=== PATIENT | female | born 2000 | race African-American/Black ===

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

== ENCOUNTER 2020-10-15 10:00 | Emergency (ER) | payer OTHER, SELFPAY ==
[2020-10-15] MEDS ORDERED: Prochlorperazine 10 MG/2 ML VIAL ONE (10:22)
[2020-10-15 10:41] LABS: Pregnancy Test - Urine (BHCG) Negative (Negative); Pregu Control Bar Appear? YES (CONTROL BAR); Specific Gravity 1.035 (1.002-1.036)
[2020-10-15 10:42] LABS: Bilirubin Small (Negative); Blood, Urine Negative (Negative); Clarity Clear (Clear); Glucose, Urine (Dipstick) Negative (Negative); Ketone, Urine Trace mg/dL (Negative); Leukocyte Negative (Negative); Nitrite Negative (Negative); Pregu Control Background? CLEAR/WHITE (CLR/WHITE); Protein, Urine (Dipstick) 30 mg/dL (Neg-Trace)
[2020-10-15 10:43] LABS: Specific Gravity, Urine 1.035 (1.002-1.036)
[2020-10-15 10:46] LABS: Bacteria/HPF Rare-Few HPF (None Seen); RBC/HPF 0-3 HPF (0-3); WBC/HPF 0-3 HPF (0-3)
[2020-10-15] MEDS ORDERED: Ondansetron PF 4 MG/2 ML Vial ONE (10:58)
[2020-10-15] MEDS ORDERED: Sodium Chloride 0.9% 1,000 ML ONE (10:58)
[2020-10-15 11:32] LABS: #Basophils 0.1 thou/uL (0.0-0.2); #Lymphocytes 1.8 thou/uL (1.20-3.40); #Monocytes 0.9 thou/uL (0.11-0.59); %Basophils 1.3 % (0.0-1.0); %Eosinophils 0.5 % (0.0-10.0); %Lymphocytes 25.9 % (28.0-48.0); %Monocytes 12.8 % (0.0-4.0); %Neutrophils 59.4 % (31.0-61.0); Hypochromia SLIGHT = 6-15 cells (100X) (0-5/hpf); MDiff Complete? YES; Mean Corpuscular HGB CONC 29.3 g/dL (32.0-36.0); Mean Corpuscular Volume 78.4 fL (78.0-98.0); Mean Platelet Volume 11.1 fL (7.4-10.4); Platelet Count 253 thou/uL (130-400); Platelet Morphology Comment Appears Adequate; RBC Distribution Width 13.4 % (11.5-14.5); Red Blood Cell (RBC) Count 5.68 mill/uL (4.00-5.20); White Blood Cell (WBC) Count 6.7 thou/uL (4.8-10.8)
[2020-10-15 11:38] LABS: ALT (SGPT) 33 U/L (8-55); AST (SGOT) 40 U/L (5-30); Albumin 4.5 g/dL (3.5-5.0); Alkaline Phosphatase 59 U/L (40-100); Anion Gap 17 mmol/L (10-20); BUN (Urea Nitrogen) 14 mg/dL (8.4-21.0); Calc. Creatinine Clearance 0 mL/min (70-130); Calcium 9.3 mg/dL (7.8-10.44); Carbon Dioxide 23 mmol/L (22-29); Chloride 102 mmol/L (98-107); Globulin 3.4 g/dL (2.4-3.5); Glucose 105 mg/dL (70-105); Lipase 20 U/L (8-78); Potassium 3.2 mmol/L (3.5-5.1); Protein, Total 7.9 g/dL (6.0-8.3); Sodium 139 mmol/L (136-145)
== END 2020-10-15 12:30 | disposition home or self-care (01) ==
LOC: MADERS 10:00
DX: R11.2 Nausea with vomiting, unspecified (principal)
CPT/HCPCS: 80053; 81003; 81015; 81025; 83690; 85025; 96372; 96374; J0780; J2405; J7050

== ENCOUNTER 2020-10-20 02:44 | Emergency (ER) | payer SELFPAY ==
[2020-10-20] MEDS ORDERED: Ondansetron PF 4 MG/2 ML Vial ONE (03:18)
[2020-10-20] MEDS ORDERED: Sodium Chloride 0.9% 1,000 ML ONE (03:18)
[2020-10-20 03:24] LABS: Bilirubin Small (Negative); Blood, Urine Negative (Negative); Clarity Clear (Clear); Glucose, Urine (Dipstick) Negative (Negative); Ketone, Urine 40 mg/dL (Negative); Leukocyte Negative (Negative); Nitrite Negative (Negative); Protein, Urine (Dipstick) Negative (Neg-Trace); Specific Gravity, Urine 1.025 (1.005-1.030); Urobilinogen > or = 8.0 mg/dL (Less than 2)
[2020-10-20 03:35] LABS: Amphetamine Not Detected (NotDetected); Barbiturates Screen Not Detected (NotDetected); Benzodiazepine Screen Not Detected (NotDetected); Cocaine Metabolite Screen Not Detected (NotDetected); Medtox Control Line Valid? VALID (VALID); Methadone Not Detected (NotDetected); Methamphetamine Not Detected (NotDetected); Opiate Screen Not Detected (NotDetected); Oxycodone Screen Not Detected (NotDetected); Phencyclidine (PCP) Not Detected (NotDetected); THC/Cannabinoid Screen Detected (NotDetected); Tricyclic Screen Not Detected (NotDetected)
[2020-10-20 03:46] LABS: #Basophils 0.1 thou/uL (0.0-0.2); #Eosinphils 0.1 thou/uL (0.0-0.7); #Lymphocytes 1.5 thou/uL (1.20-3.40); #Monocytes 0.4 thou/uL (0.11-0.59); #Neutrophils 3.9 thou/uL (1.40-6.50); %Basophils 2.2 % (0.0-1.0); %Lymphocytes 24.1 % (28.0-48.0); %Monocytes 7.2 % (0.0-4.0); %Neutrophils 65.5 % (31.0-61.0); Hemoglobin 11.3 g/dL (12.0-16.0); Large Platelets SLIGHT; MDiff Complete? YES; Mean Corpuscular HGB CONC 29.2 g/dL (32.0-36.0); Mean Corpuscular Hemoglobin 23.1 pg (25.0-35.0); Mean Corpuscular Volume 79.2 fL (78.0-98.0); Mean Platelet Volume 10.9 fL (7.4-10.4); Platelet Count 220 thou/uL (130-400); Platelet Morphology Comment Appears Adequate; RBC Distribution Width 14.1 % (11.5-14.5); RBC Morphology Normal
[2020-10-20 03:53] LABS: ALT (SGPT) 16 U/L (8-55); AST (SGOT) 10 U/L (5-30); Albumin 4.1 g/dL (3.5-5.0); Alkaline Phosphatase 49 U/L (40-100); Anion Gap 15 mmol/L (10-20); BHCG - Serum Negative (NEGATIVE); BUN (Urea Nitrogen) 7 mg/dL (8.4-21.0); Bilirubin, Total 0.5 mg/dL (0.2-1.2); CK (CPK) 72 U/L (29-168); Calc. Creatinine Clearance 0 mL/min (70-130); Calcium 8.9 mg/dL (7.8-10.44); Carbon Dioxide 21 mmol/L (22-29); Chloride 107 mmol/L (98-107); Globulin 2.9 g/dL (2.4-3.5); Glucose 106 mg/dL (70-105); Lipase 20 U/L (8-78); Potassium 4.1 mmol/L (3.5-5.1); Pregs Control Background? CLEAR/WHITE (CLR/WHITE); Pregs Control Bar Appear? YES (CONTROL BAR); Sodium 139 mmol/L (136-145)
[2020-10-20] MEDS ORDERED: Pantoprazole 40 MG VIAL ONE (04:18)
[2020-10-20] MEDS ORDERED: Metoclopramide HCl 10 MG/2 ML VIAL ONE (04:18)
== END 2020-10-20 05:18 | disposition home or self-care (01) ==
LOC: MADERS 02:44
DX: R11.2 Nausea with vomiting, unspecified (principal); F12.10 Cannabis abuse, uncomplicated; R00.0 Tachycardia, unspecified; R63.0 Anorexia; R53.1 Weakness
CPT/HCPCS: 80053; 80306; 81003; 82150; 82550; 83690; 84703; 85025; 96374; 96375; C9113; J2405; J2765; J7050

== ENCOUNTER 2021-04-26 18:30 | Emergency (ER) | payer MEDICAID, SELFPAY ==
[2021-04-26] MEDS ORDERED: Ondansetron ODT 4 MG TAB ONE ×2 (19:15→21:13)
[2021-04-26 19:25] LABS: Bilirubin Negative (Negative); Blood, Urine Negative (Negative); Glucose, Urine (Dipstick) Negative (Negative); Ketone, Urine 15 mg/dL (Negative); Leukocyte Negative (Negative); Nitrite Negative (Negative); Protein, Urine (Dipstick) 30 mg/dL (Neg-Trace)
[2021-04-26 19:26] LABS: Pregnancy Test - Urine (BHCG) Negative (Negative); Pregu Control Background? CLEAR/WHITE (CLR/WHITE); Pregu Control Bar Appear? YES (CONTROL BAR); Specific Gravity 1.025 (1.002-1.036)
[2021-04-26 19:33] LABS: Clarity Hazy (Clear); Specific Gravity, Urine 1.025 (1.002-1.036)
[2021-04-26 19:34] LABS: Bacteria/HPF 2+ HPF (None Seen); RBC/HPF 0-3 HPF (0-3)
== END 2021-04-26 21:45 | disposition home or self-care (01) ==
LOC: MADERS 18:30
DX: A08.4 Viral intestinal infection, unspecified (principal)
CPT/HCPCS: 81003; 81015; 81025; 99284; Q0162

== ENCOUNTER 2021-04-27 04:12 | Emergency (ER) | payer MEDICAID ==
[2021-04-27] MEDS ORDERED: Sodium Chloride 0.9% 1,000 ML ONE (04:52)
[2021-04-27] MEDS ORDERED: Promethazine HCl 25 MG/ML VIAL ONE (04:52)
[2021-04-27 05:05] LABS: Band 1 % (5-11); Hypochromia SLIGHT = 6-15 cells (100X) (0-5/hpf); Lymphocytes 13 % (28-48); MDiff Complete? YES; Mean Corpuscular HGB CONC 30.4 g/dL (32.0-36.0); Mean Corpuscular Volume 75.7 fL (78.0-98.0); Mean Platelet Volume 9.7 fL (7.4-10.4); Microcytosis SLIGHT = 6-15 cells (100X) (0-5/hpf); Monocytes 3 % (0-4); Neutrophil 82 % (31-61); Platelet Count 276 thou/uL (130-400); RBC Distribution Width 12.7 % (11.5-14.5); Reactive Lymphocytes 1 % (0-10); Red Blood Cell (RBC) Count 5.64 mill/uL (4.00-5.20); White Blood Cell (WBC) Count 5.9 thou/uL (4.8-10.8)
[2021-04-27 05:07] LABS: BHCG - Serum Negative (NEGATIVE); Pregs Control Background? CLEAR/WHITE (CLR/WHITE); Pregs Control Bar Appear? YES (CONTROL BAR)
[2021-04-27 05:09] LABS: ALT (SGPT) 11 U/L (8-55); AST (SGOT) 15 U/L (5-34); Albumin 4.8 g/dL (3.5-5.0); Alkaline Phosphatase 63 U/L (40-100); Anion Gap 17 mmol/L (10-20); BUN (Urea Nitrogen) 11 mg/dL (7.0-18.7); Bilirubin, Total 0.6 mg/dL (0.2-1.2); Calc. Creatinine Clearance 0 mL/min (70-130); Calcium 10.7 mg/dL (7.8-10.44); Carbon Dioxide 22 mmol/L (22-29); Chloride 105 mmol/L (98-107); Globulin 4.2 g/dL (2.4-3.5); Glucose 120 mg/dL (70-105); Lipase 21 U/L (8-78); Magnesium 1.8 mg/dL (1.7-2.2); Potassium 3.7 mmol/L (3.5-5.1); Sodium 140 mmol/L (136-145)
[2021-04-27] MEDS ORDERED: Pantoprazole 40 MG VIAL ONE (06:17)
== END 2021-04-27 06:30 | disposition home or self-care (01) ==
LOC: MADERS 04:12
DX: F12.188 Cannabis abuse with other cannabis-induced disorder (principal); R11.2 Nausea with vomiting, unspecified; Z79.899 Other long term (current) drug therapy
CPT/HCPCS: 80053; 83690; 83735; 84703; 85025; 93005; 96365; 96375; C9113; J2550; J7050

== ENCOUNTER 2021-04-28 16:44 | Emergency (ER) | payer OTHER, MEDICAID ==
[2021-04-28] MEDS ORDERED: Ondansetron ODT 4 MG TAB ONE (20:09)
[2021-04-28 20:39] LABS: Bilirubin Small (Negative); Blood, Urine Negative (Negative); Glucose, Urine (Dipstick) Negative (Negative); Ketone, Urine 40 mg/dL (Negative); Leukocyte Negative (Negative); Nitrite Negative (Negative); Protein, Urine (Dipstick) 30 mg/dL (Neg-Trace); Urobilinogen 0.2 mg/dL (Less than 2)
[2021-04-28 20:42] LABS: Pregnancy Test - Urine (BHCG) Negative (Negative); Pregu Control Background? CLEAR/WHITE (CLR/WHITE); Pregu Control Bar Appear? YES (CONTROL BAR); Specific Gravity 1.036 (1.002-1.036)
[2021-04-28 20:45] LABS: Specific Gravity, Urine 1.036 (1.002-1.036)
[2021-04-28 20:46] LABS: Bacteria/HPF 1+ HPF (None Seen); Clarity Hazy (Clear); Mucous/LPF 4+ LPF (<2+); RBC/HPF 0-3 HPF (0-3); Squamous Epithelial 21-50 HPF (0-3); WBC/HPF Greater Than 50 HPF (0-3)
[2021-04-28] MEDS ORDERED: Cephalexin 500 MG CAP ONE (21:26)
[2021-04-29 19:48] LABS: SARS-CoV-2 PCR by NAA Not Detected (NotDetected)
== END 2021-04-28 21:45 | disposition home or self-care (01) ==
LOC: MADERS 16:44
DX: B34.9 Viral infection, unspecified (principal); N39.0 Urinary tract infection, site not specified; Z20.822 Contact with and (suspected) exposure to COVID-19
CPT/HCPCS: 81003; 81015; 81025; 87804; 99284; Q0162; U0003; U0005

== ENCOUNTER 2021-09-04 12:08 | Emergency (ER) | payer OTHER ==
[2021-09-04] MEDS ORDERED: Ondansetron PF 4 MG/2 ML Vial ONE (12:28)
[2021-09-04] MEDS ORDERED: Dicyclomine 20 MG/2 ML VIAL ONE (12:52)
[2021-09-04 12:56] LABS: #Basophils 0.1 thou/uL (0.0-0.2); #Lymphocytes 1.8 thou/uL (1.20-3.40); #Monocytes 0.7 thou/uL (0.11-0.59); #Neutrophils 3.9 thou/uL (1.40-6.50); %Basophils 2.1 % (0.0-1.0); %Eosinophils 0.1 % (0.0-10.0); %Lymphocytes 27.3 % (28.0-48.0); %Monocytes 9.7 % (0.0-4.0); %Neutrophils 60.8 % (31.0-61.0); Hemoglobin 13.6 g/dL (12.0-16.0); Mean Corpuscular Hemoglobin 21.8 pg (25.0-35.0); Mean Corpuscular Volume 75.2 fL (78.0-98.0); Mean Platelet Volume 11.7 fL (7.4-10.4); Platelet Count 204 thou/uL (130-400); RBC Distribution Width 13.7 % (11.5-14.5); White Blood Cell (WBC) Count 6.4 thou/uL (4.8-10.8)
[2021-09-04 13:06] LABS: ALT (SGPT) 12 U/L (8-55); AST (SGOT) 14 U/L (5-34); Albumin 4.8 g/dL (3.5-5.0); Alkaline Phosphatase 61 U/L (40-100); Anion Gap 18 mmol/L (10-20); BUN (Urea Nitrogen) 11 mg/dL (7.0-18.7); Bilirubin, Total 0.8 mg/dL (0.2-1.2); Calc. Creatinine Clearance 0 mL/min (70-130); Carbon Dioxide 23 mmol/L (22-29); Chloride 101 mmol/L (98-107); Globulin 3.9 g/dL (2.4-3.5); Glucose 101 mg/dL (70-105); Lipase 32 U/L (8-78); Potassium 3.5 mmol/L (3.5-5.1); Protein, Total 8.7 g/dL (6.0-8.3); Sodium 138 mmol/L (136-145)
[2021-09-04] MEDS ORDERED: Mag-Al Plus 1200 MG/1200 MG/120 MG/30 ML UDCUP ONE (13:15)
[2021-09-04] MEDS ORDERED: Lidocaine Viscous Sol 2% 15 ml UD Cup ONE (13:15)
[2021-09-04 13:46] LABS: Bilirubin Small (Negative); Blood, Urine Negative (Negative); Clarity Clear (Clear); Glucose, Urine (Dipstick) Negative (Negative); Ketone, Urine > or equal to 80 mg/dL (Negative); Leukocyte Trace (Negative); Nitrite Negative (Negative); Protein, Urine (Dipstick) 30 mg/dL (Neg-Trace); pH, Urine 6.5 (5.0-9.0)
[2021-09-04 13:47] LABS: Pregnancy Test - Urine (BHCG) Negative (Negative); Pregu Control Bar Appear? YES (CONTROL BAR)
[2021-09-04 13:48] LABS: Pregu Control Background? CLEAR/WHITE (CLR/WHITE)
[2021-09-04 13:50] LABS: RBC/HPF 0-3 HPF (0-3); Squamous Epithelial 0-3 HPF (0-3)
[2021-09-04 13:51] LABS: Bacteria/HPF Rare-Few HPF (None Seen)
[2021-09-04] MEDS ORDERED: Metoclopramide HCl 10 MG/2 ML VIAL ONE (14:22)
== END 2021-09-04 15:35 | disposition home or self-care (01) ==
LOC: MADERS 12:08
DX: E86.0 Dehydration (principal); R10.12 Left upper quadrant pain; R10.13 Epigastric pain; R82.4 Acetonuria; R11.2 Nausea with vomiting, unspecified
CPT/HCPCS: 71045; 80053; 81003; 81015; 81025; 83605; 83690; 84484; 85025; 93005; 94760; 96372; 96374; 96375; J0500; J2405; J2765

== ENCOUNTER 2021-12-27 13:17 | Emergency (ER) | payer OTHER ==
[2021-12-27] MEDS ORDERED: Acetaminophen 500 MG TAB ONE (13:31)
[2021-12-27 13:51] LABS: Bilirubin Negative (Negative); Blood, Urine Negative (Negative); Clarity Hazy (Clear); Glucose, Urine (Dipstick) Negative (Negative); Ketone, Urine Negative (Negative); Leukocyte Negative (Negative); Nitrite Negative (Negative); Protein, Urine (Dipstick) Negative (Neg-Trace); Specific Gravity, Urine 1.025 (1.005-1.030); Urobilinogen 0.2 mg/dL (Less than 2); pH, Urine 5.5 (5.0-9.0)
[2021-12-27 13:52] LABS: Pregnancy Test - Urine (BHCG) Negative (Negative); Pregu Control Background? CLEAR/WHITE (CLR/WHITE); Pregu Control Bar Appear? YES (CONTROL BAR); Specific Gravity 1.025 (1.002-1.036)
[2021-12-27 14:27] LABS: #Basophils 0.2 thou/uL (0.0-0.2); #Eosinphils 0.1 thou/uL (0.0-0.7); #Lymphocytes 0.6 thou/uL (1.20-3.40); #Monocytes 0.9 thou/uL (0.11-0.59); #Neutrophils 13.3 thou/uL (1.40-6.50); %Basophils 1.1 % (0.0-1.0); %Eosinophils 0.4 % (0.0-10.0); %Lymphocytes 3.7 % (21.0-51.0); %Monocytes 5.8 % (0.0-10.0); Hemoglobin 11.3 g/dL (12.0-16.0); Mean Corpuscular HGB CONC 29.7 g/dL (32.0-36.0); Mean Corpuscular Hemoglobin 22.9 pg (27.0-31.0); Mean Corpuscular Volume 77.3 fL (78.0-98.0); Mean Platelet Volume 13.3 fL (7.4-10.4); Platelet Count 180 thou/uL (130-400); RBC Distribution Width 12.7 % (11.5-14.5); Red Blood Cell (RBC) Count 4.94 mill/uL (4.20-5.40)
[2021-12-27] MEDS ORDERED: Ketorolac Tromethamine 30 MG/ML VIAL ONE (14:40)
[2021-12-27 14:42] LABS: ALT (SGPT) 10 U/L (8-55); AST (SGOT) 12 U/L (5-34); Alkaline Phosphatase 56 U/L (40-110); Anion Gap 14 mmol/L (10-20); BUN (Urea Nitrogen) 7 mg/dL (7.0-18.7); Bilirubin, Total 0.7 mg/dL (0.2-1.2); Calc. Creatinine Clearance 0 mL/min (70-130); Calcium 9.1 mg/dL (7.8-10.44); Carbon Dioxide 22 mmol/L (22-29); Chloride 105 mmol/L (98-107); Estimated GFR 122; Globulin 3.1 g/dL (2.4-3.5); Glucose 114 mg/dL (70-105); Magnesium 1.4 mg/dL (1.6-2.6); Potassium 3.7 mmol/L (3.5-5.1); Protein, Total 7.1 g/dL (6.0-8.3); Sodium 137 mmol/L (136-145)
[2021-12-27] MEDS ORDERED: Magnesium 2 GM/50 ML BAG (IN WATER) ONE (15:22)
[2021-12-27] MEDS ORDERED: Lactated Ringer's 2,000 ML ONE (15:22)
== END 2021-12-27 17:05 | disposition home or self-care (01) ==
LOC: MADERS 13:17
DX: M54.50 Low back pain, unspecified (principal); J20.9 Acute bronchitis, unspecified; E83.42 Hypomagnesemia; D72.829 Elevated white blood cell count, unspecified; F17.210 Nicotine dependence, cigarettes, uncomplicated; Z20.822 Contact with and (suspected) exposure to COVID-19
CPT/HCPCS: 36415; 71045; 80053; 81003; 81025; 83605; 83735; 84443; 84484; 85025; 85379; 87040; 87804; 93005; 94760; 96365; 96375; J1885; J3475; J7120; U0003; U0005

== ENCOUNTER 2022-02-16 18:37 | Emergency (ER) | payer OTHER ==
[2022-02-16 19:34] LABS: ALT (SGPT) Less than 7 U/L (8-55); AST (SGOT) 14 U/L (5-34); Alkaline Phosphatase 56 U/L (40-110); Anion Gap 12 mmol/L (10-20); BUN (Urea Nitrogen) 10 mg/dL (7.0-18.7); Bilirubin, Total 0.3 mg/dL (0.2-1.2); Calc. Creatinine Clearance 0 mL/min (70-130); Calcium 9.3 mg/dL (7.8-10.44); Carbon Dioxide 25 mmol/L (22-29); Chloride 105 mmol/L (98-107); Estimated GFR 124; Globulin 3.5 g/dL (2.4-3.5); Glucose 93 mg/dL (70-105); Potassium 4.3 mmol/L (3.5-5.1); Protein, Total 7.5 g/dL (6.0-8.3); Sodium 138 mmol/L (136-145)
[2022-02-16 19:35] LABS: Anisocytosis SLIGHT = 6-15 cells (100X) (0-5/hpf); Eosinophils 3 % (0-10); Hemoglobin 12.2 g/dL (12.0-16.0); Hypochromia SLIGHT = 6-15 cells (100X) (0-5/hpf); Lymphocytes 35 % (21-51); MDiff Complete? YES; Mean Corpuscular HGB CONC 30.2 g/dL (32.0-36.0); Mean Corpuscular Hemoglobin 24.1 pg (27.0-31.0); Mean Corpuscular Volume 79.7 fL (78.0-98.0); Mean Platelet Volume 10.1 fL (7.4-10.4); Monocytes 17 % (0-10); Neutrophil 44 % (42-75); Platelet Count 229 thou/uL (130-400); Platelet Morphology Comment Appears Adequate; RBC Distribution Width 13.2 % (11.5-14.5); Red Blood Cell (RBC) Count 5.07 mill/uL (4.20-5.40)
[2022-02-16 20:48] LABS: Bilirubin Negative (Negative); Blood, Urine Moderate (Negative); Clarity Clear (Clear); Glucose, Urine (Dipstick) Negative (Negative); Ketone, Urine Negative (Negative); Leukocyte Negative (Negative); Nitrite Negative (Negative); Protein, Urine (Dipstick) Negative (Neg-Trace); Specific Gravity, Urine 1.025 (1.002-1.036); Urobilinogen 0.2 mg/dL (Less than 2)
[2022-02-16 20:52] LABS: Bacteria/HPF Rare-Few HPF (None Seen); RBC/HPF 0-3 HPF (0-3)
[2022-02-16 20:53] LABS: Mucous/LPF 2+ LPF (<2+)
== END 2022-02-16 20:55 | disposition short-term general hospital (02) ==
LOC: MADERS 18:37
DX: O20.9 Hemorrhage in early pregnancy, unspecified (principal); O99.331 Smoking (tobacco) complicating pregnancy, first trimester; F17.210 Nicotine dependence, cigarettes, uncomplicated; Z3A.01 Less than 8 weeks gestation of pregnancy
CPT/HCPCS: 36415; 80053; 81003; 81015; 84702; 85025; 86900; 86901; 99284

== ENCOUNTER 2022-07-26 14:57 | Emergency (ER) | payer OTHER | END 2022-07-26 17:26 | disposition short-term general hospital (02) | LOC: MADERS 14:57 | DX: O20.8 Other hemorrhage in early pregnancy (principal); Z3A.01 Less than 8 weeks gestation of pregnancy | CPT/HCPCS: 36415; 84702; 99284 ==

== ENCOUNTER 2022-09-01 14:06 | Emergency (ER) | payer OTHER ==
[2022-09-01] MEDS ORDERED: Ondansetron ODT 4 MG TAB ONE (14:30)
[2022-09-01 14:42] LABS: Pregnancy Test - Urine (BHCG) POSITIVE (Negative); Pregu Control Background? CLEAR/WHITE (CLR/WHITE); Pregu Control Bar Appear? YES (CONTROL BAR)
[2022-09-01 14:44] LABS: Bilirubin Negative (Negative); Blood, Urine Large (Negative); Glucose, Urine (Dipstick) Negative (Negative); Ketone, Urine Negative (Negative); Leukocyte Negative (Negative); Nitrite Negative (Negative); Protein, Urine (Dipstick) 30 mg/dL (Neg-Trace); pH, Urine 6.5 (5.0-9.0)
[2022-09-01 14:46] LABS: Clarity Hazy (Clear)
[2022-09-01 14:48] LABS: Bacteria/HPF 2+ HPF (None Seen)
== END 2022-09-01 15:10 | disposition home or self-care (01) ==
LOC: MADERS 14:06
DX: O21.9 Vomiting of pregnancy, unspecified (principal); O23.40 Unspecified infection of urinary tract in pregnancy, unspecified trimester; N39.0 Urinary tract infection, site not specified; O99.330 Smoking (tobacco) complicating pregnancy, unspecified trimester; F17.210 Nicotine dependence, cigarettes, uncomplicated; Z3A.00 Weeks of gestation of pregnancy not specified
CPT/HCPCS: 81003; 81015; 81025; 99284; Q0162

== ENCOUNTER 2022-09-03 18:16 | Emergency (ER) | payer OTHER ==
[2022-09-03] MEDS ORDERED: Thiamine HCl 200 MG/2 ML VIAL ONE (19:13)
[2022-09-03] MEDS ORDERED: Lactated Ringer's 1,000 ML ONE (19:13)
[2022-09-03] MEDS ORDERED: Prochlorperazine 10 MG/2 ML VIAL ONE ×2 (19:13→21:27)
[2022-09-03 19:16] LABS: Bilirubin Small (Negative); Blood, Urine Moderate (Negative); Clarity Clear (Clear); Glucose, Urine (Dipstick) Negative (Negative); Ketone, Urine > or equal to 80 mg/dL (Negative); Leukocyte Negative (Negative); Nitrite Negative (Negative); Protein, Urine (Dipstick) 30 mg/dL (Neg-Trace)
[2022-09-03 19:24] LABS: Pregnancy Test - Urine (BHCG) POSITIVE (Negative); Pregu Control Background? CLEAR/WHITE (CLR/WHITE); Pregu Control Bar Appear? YES (CONTROL BAR); Specific Gravity 1.035 (1.002-1.036)
[2022-09-03 19:25] LABS: Specific Gravity, Urine 1.035 (1.002-1.036)
[2022-09-03 19:37] LABS: ALT (SGPT) 11 U/L (8-55); AST (SGOT) 14 U/L (5-34); Albumin 4.5 g/dL (3.5-5.0); Alkaline Phosphatase 48 U/L (40-110); Anion Gap 18 mmol/L (10-20); BUN (Urea Nitrogen) 11 mg/dL (7.0-18.7); Bilirubin, Total 0.5 mg/dL (0.2-1.2); Calc. Creatinine Clearance 0 mL/min (70-130); Calcium 9.5 mg/dL (7.8-10.44); Carbon Dioxide 21 mmol/L (22-29); Chloride 105 mmol/L (98-107); Estimated GFR 106; Globulin 3.5 g/dL (2.4-3.5); Glucose 99 mg/dL (70-105); Lipase 18 U/L (8-78); Magnesium 1.7 mg/dL (1.6-2.6); Potassium 3.5 mmol/L (3.5-5.1); Sodium 140 mmol/L (136-145)
[2022-09-03 19:44] LABS: Bacteria/HPF Rare-Few HPF (None Seen); Mucous/LPF 3+ LPF (<2+); RBC/HPF 0-3 HPF (0-3)
[2022-09-03] MEDS ORDERED: Dextrose 5 % And 0.9 % NaCl 1,000 ML ONE (19:47)
[2022-09-03 19:54] LABS: %Basophils 1.4 % (0.0-1.0); %Lymphocytes 18.6 % (21.0-51.0); %Monocytes 5.2 % (0.0-10.0); %Neutrophils 74.9 % (42.0-75.0); Hemoglobin 12.3 g/dL (12.0-16.0); Mean Corpuscular HGB CONC 31.3 g/dL (32.0-36.0); Mean Corpuscular Hemoglobin 24.1 pg (27.0-31.0); Mean Corpuscular Volume 76.9 fl (78.0-98.0); Mean Platelet Volume 11.7 fL (7.4-10.4); Platelet Count 223 10x3/uL (130-400); RBC Distribution Width 12.9 % (11.5-14.5); Red Blood Cell (RBC) Count 5.15 mill/uL (4.20-5.40); White Blood Cell (WBC) Count 5.5 10x3/uL (4.8-10.8)
[2022-09-03 20:14] LABS: Platelet Morphology Comment Appears Adequate; RBC Morphology Normal
== END 2022-09-03 22:49 | disposition short-term general hospital (02) ==
LOC: MADERS 18:16
DX: O21.0 Mild hyperemesis gravidarum (principal); O20.9 Hemorrhage in early pregnancy, unspecified; O99.331 Smoking (tobacco) complicating pregnancy, first trimester; F17.210 Nicotine dependence, cigarettes, uncomplicated; Z3A.01 Less than 8 weeks gestation of pregnancy
CPT/HCPCS: 80053; 81003; 81015; 81025; 83605; 83690; 83735; 84702; 85025; 86900; 86901; 87040; 87086; 94760; 96361; 96374; 96375; 96376; J0780; J3411; J7042; J7120

== ENCOUNTER 2022-09-06 11:58 | Emergency (ER) | payer OTHER ==
[2022-09-06 12:34] LABS: Bilirubin Large (Negative); Blood, Urine Large (Negative); Clarity Clear (Clear); Glucose, Urine (Dipstick) Negative (Negative); Ketone, Urine > or equal to 80 mg/dL (Negative); Leukocyte Negative (Negative); Nitrite Negative (Negative); Protein, Urine (Dipstick) 30 mg/dL (Neg-Trace); Specific Gravity, Urine 1.025 (1.005-1.030); Urobilinogen > or = 8.0 mg/dL (Less than 2); pH, Urine 6.5 (5.0-9.0)
[2022-09-06 12:41] LABS: Amphetamine Not Detected (NotDetected); Benzodiazepine Screen Not Detected (NotDetected); Cocaine Metabolite Screen Not Detected (NotDetected); Methamphetamine Not Detected (NotDetected); Opiate Screen Not Detected (NotDetected); Phencyclidine (PCP) Not Detected (NotDetected); THC/Cannabinoid Screen Detected (NotDetected)
[2022-09-06 12:42] LABS: Barbiturates Screen Not Detected (NotDetected); Methadone Not Detected (NotDetected); Oxycodone Screen Not Detected (NotDetected); Tricyclic Screen Not Detected (NotDetected)
[2022-09-06 12:45] LABS: Bacteria/HPF Rare-Few HPF (None Seen); Mucous/LPF 4+ LPF (<2+); RBC/HPF 0-3 HPF (0-3)
[2022-09-06] MEDS ORDERED: Metoclopramide HCl 10 MG/2 ML VIAL ONE (12:46)
[2022-09-06] MEDS ORDERED: Sodium Chloride 0.9% 1,000 ML ONE (12:46)
[2022-09-06 12:54] LABS: Mean Corpuscular HGB CONC 31.8 g/dL (32.0-36.0); Mean Corpuscular Hemoglobin 24.4 pg (27.0-31.0); Mean Corpuscular Volume 76.8 fl (78.0-98.0); Mean Platelet Volume 12.1 fL (7.4-10.4); Platelet Count 192 10x3/uL (130-400); RBC Distribution Width 12.9 % (11.5-14.5); Red Blood Cell (RBC) Count 4.93 mill/uL (4.20-5.40); White Blood Cell (WBC) Count 5.5 10x3/uL (4.8-10.8)
[2022-09-06 13:04] LABS: ALT (SGPT) 10 U/L (8-55); AST (SGOT) 12 U/L (5-34); Albumin 4.3 g/dL (3.5-5.0); Alkaline Phosphatase 47 U/L (40-110); Anion Gap 16 mmol/L (10-20); BUN (Urea Nitrogen) 8 mg/dL (7.0-18.7); Bilirubin, Total 0.6 mg/dL (0.2-1.2); Calc. Creatinine Clearance 0 mL/min (70-130); Calcium 9.2 mg/dL (7.8-10.44); Carbon Dioxide 23 mmol/L (22-29); Chloride 104 mmol/L (98-107); Estimated GFR 103; Globulin 3.1 g/dL (2.4-3.5); Glucose 107 mg/dL (70-105); Potassium 3.1 mmol/L (3.5-5.1); Protein, Total 7.4 g/dL (6.0-8.3); Sodium 140 mmol/L (136-145)
[2022-09-06 13:09] LABS: Lymphocytes 21 % (21-51); MDiff Complete? YES; Manual Diff?? YES; Monocytes 6 % (0-10); Neutrophil 66 % (42-75); Reactive Lymphocytes 7 % (0-10)
[2022-09-06 13:10] LABS: Giant Platelets SLIGHT HPF (0-5); Large Platelets SLIGHT (None Seen); Platelet Adequacy Comment Appears Adequate; Polychromasia SLIGHT = 2-3 cells (100X) (0-2/hpf)
[2022-09-06] MEDS ORDERED: Mag-Al Plus 1200 MG/1200 MG/120 MG/30 ML UDCUP ONE (13:18)
[2022-09-06] MEDS ORDERED: Lidocaine Viscous Sol 2% 15 ml UD Cup ONE (13:18)
[2022-09-06] MEDS ORDERED: Potassium Chloride 20 MEQ TAB ONE (13:18)
== END 2022-09-06 14:15 | disposition home or self-care (01) ==
LOC: MADERS 11:58
DX: O20.0 Threatened abortion (principal); O99.281 Endocrine, nutritional and metabolic diseases complicating pregnancy, first trimester; E87.6 Hypokalemia; O21.9 Vomiting of pregnancy, unspecified; Z3A.01 Less than 8 weeks gestation of pregnancy
CPT/HCPCS: 36415; 80053; 80306; 81003; 81015; 84702; 85025; 96361; 96374; J2765; J7050

== ENCOUNTER 2023-03-06 18:27 | Emergency (ER) | payer OTHER ==
[2023-03-06 19:14] LABS: Bilirubin Negative (Negative); Blood, Urine Negative (Negative); Clarity Clear (Clear); Glucose, Urine (Dipstick) Negative (Negative); Ketone, Urine Negative (Negative); Leukocyte Negative (Negative); Nitrite Negative (Negative); Protein, Urine (Dipstick) Negative (Neg-Trace); Urobilinogen 0.2 mg/dL (Less than 2); pH, Urine 6.5 (5.0-9.0)
[2023-03-06 19:18] LABS: Pregnancy Test - Urine (BHCG) Negative (Negative); Pregu Control Background? CLEAR/WHITE (CLR/WHITE); Pregu Control Bar Appear? YES (CONTROL BAR); Specific Gravity 1.028 (1.002-1.036); Specific Gravity, Urine 1.028 (1.002-1.036)
[2023-03-06 19:21] LABS: Bacteria/HPF Rare-Few HPF (None Seen); CAUTI Indications for Culture Pelvic or flank pain; Mucous/LPF 3+ LPF (<2+); RBC/HPF None Seen HPF (0-3); Urine Culture Reflex No No
[2023-03-06] MEDS ORDERED: Lidocaine 4% Patch ONE (19:32)
[2023-03-06] MEDS ORDERED: Ibuprofen 800 MG TAB ONE (19:32)
== END 2023-03-06 20:35 | disposition home or self-care (01) ==
LOC: MADERS 18:27
DX: S23.41XA Sprain of ribs, initial encounter (principal); F17.210 Nicotine dependence, cigarettes, uncomplicated; X58.XXXA Exposure to other specified factors, initial encounter
CPT/HCPCS: 81001; 81025